=== PATIENT | male | born 1970 | race Caucasian/White ===

== ENCOUNTER → 2016-05-19 | Outpatient (CLI) | payer BC, OTHER ==
[~2016-05-19] MED LIST: MISCCAP80 PO
== END | disposition home or self-care (01) ==
LOC: C.LABPVFM 07:33
PROVIDERS: ATTEND Family Medicine
DX: R10.9 Unspecified abdominal pain (principal)

== ENCOUNTER 2016-12-13 19:41 | Emergency (ER) | payer BC, OTHER ==
[~2016-12-13] VITALS: Ht 181.6 cm; Wt 121.8 kg
[2016-12-13 19:44] VITALS: TEMP 36.9; Ht 181.6 cm; Wt 121.8 kg
--- NOTE | 2016-12-13 20:01 | EMERGENCY ROOM VISIT NOTE ---
ED Visit Note First contact with patient: 19:58 CHIEF COMPLAINT: Knee laceration HISTORY OF PRESENT ILLNESS: This 45-year-old male patient presents to the emergency department with his after cutting the anterior left knee with a end trimmer around 6:30 PM today. Patient states he took a shower to wash out the wound, it states the bleeding has not stopped, which is what has brought him in today. Denies weakness or numbness of the lower extremity. Patient denies foreign body sensation. The patient rates the pain as burning and throbbing and to/10. The patient denies any other injuries. The patient's Tetanus shot is not up to date. REVIEW OF SYSTEMS: A 6 system review of systems was completed with positives and pertinent negatives listed in the HPI. ALLERGIES: See chart MEDICATIONS: See chart PMH: See chart SOCIAL HISTORY: See chart PHYSICAL EXAM: Vital Signs: Reviewed Nurse's notes, vital signs stable. GENERAL : Pleasant and cooperative, in no acute distress, well-developed, well- nourished. SKIN: There is a 5 cm long laceration on the anterior aspect of the left knee. The edges gape apart with traction. There is no foreign material in the wound and it looks clean. There is minimal bleeding. No deep structures such as tendons, bones, or significant blood vessels are seen in the base of the wound. Normal strength and movement of the left knee. Capillary refill less than 2 seconds. Normal sensation to light and sharp touch. EMERGENCY DEPARTMENT COURSE: I examined the patient. Verbal consent was obtained to perform the procedure. Using sterile technique the wound was cleansed with Betadine. The area was sterilely draped. 4 ml of 1% buffered lidocaine with epinephrine was used to anesthetize the laceration on the left knee. Once the patient was anesthetized, the wound was copiously irrigated under pressure with sterile saline. The wound was explored and was as described above, specifically the wound does not extend into the knee joint. The laceration was repaired using one horizontal mattress suture with 3-0 nylon suture and 7 simple interrupted 4-0 nylon sutures with the wound edges being well approximated. The patient tolerated the procedure well. Hemostasis was achieved. The area was cleaned with sterile saline and dressed with bacitracin ointment and bandage. The patient was placed in a knee immobilizer to maintain suture integrity. The patient was given Td immunization. The patient was discharged home in good condition. Current/Historical Medications Scheduled Probiotic Product (Probiotic), 1 CAP PO DAILY Allergies Coded Allergies: No Known Allergies (Unverified , 12/13/16) Vital Signs Date Time Temp Pulse Resp B/P (MAP) Pulse Ox O2 Delivery O2 Flow Rate FiO2 12/13/16 22:50 68 16 124/70 98 12/13/16 21:40 72 16 127/85 97 Room Air 12/13/16 19:44 36.9 88 18 137/86 97 Room Air Medications Administered Medications (Trade) Dose Ordered Sig/Waqar Route Start Time Stop Time Status Last Admin Dose Admin Diphtheria/ Pertussis/Tetanus Vacc (Adacel Inj) 0.5 ml ONCE ONCE IM. 12/13/16 20:30 12/13/16 20:31 DC 12/13/16 20:30 0.5 ML Departure Information Impression Primary Impression: Laceration of left knee without complication Dispostion Home / Self-Care Condition GOOD Referrals No Doctor, Assigned (PCP) Patient Instructions ED Laceration Ext Sutr Stap Tape, [employer] Additional Instructions Follow-up with your PCP, in urgent care, or ER for suture removal in 10-12 days. Wear the knee immobilizer whenever your up and about to keep the knee from bending and popping up in your stitches. You may remove for sleep and showers. Keep wound clean and dry. Do not allow any crusting or dried blood to accumulate on sutures. If this occurs, use a 1:1 solution of hydrogen peroxide/ water on a Q-tip to clean the wound. Do not submerge the wound under water, no swimming until the sutures are removed. Use an antibiotic ointment for 3-4 days, then let wound dry. Ice and elevate for swelling and pain. Ibuprofen 600 mg and Tylenol 1000 mg every 6-8 hrs as needed for pain. Keep covered when in sun until sutures removed then SPF 50 or higher for one year. Vitamin E oil if desired two weeks after suture removal for reduction of scar. Please seek immediate medical attention for any signs of infection (increasing redness, swelling, pus drainage, streaking up the leg, fever/chills). Problem Qualifiers Primary Impression: Laceration of left knee without complication Encounter type: initial encounter Qualified Codes: S81.012A - Laceration without foreign body, left knee, initial encounter
[2016-12-13] MEDS ORDERED: DIPHTHERIA/TETANUS/PERTUSSIS 0.5 ML SYR/VIAL IM. ONE (20:30)
[2016-12-13] MEDS ORDERED: LIDOCAINE/EPINEPHRINE 1% 20 ML VIAL INFIL ONE (20:30)
[2016-12-13] MEDS ORDERED: MISCCAP80 PO (20:36)
[2016-12-13 22:50] VITALS: BP 124/70; PULSE 68; O2SAT 98
== END 2016-12-13 22:51 | disposition home or self-care (01) ==
LOC: C.EDB 19:43 → C.EDD 22:51
DX: S81.012A Laceration without foreign body, left knee, initial encounter (principal); W29.3XXA Contact with powered garden and outdoor hand tools and machinery, initial encounter; Z23 Encounter for immunization

== ENCOUNTER 2018-09-28 17:02 | Observation (INO) ==
[2018-09-28] MEDS ORDERED: ONDANSETRON INJ 2 MG/ML 2 ML VIAL IV PRN (18:30)
[2018-09-28] MEDS ORDERED: ACETAMINOPHEN 325 MG TAB PO PRN (18:30)
--- NOTE | 2018-09-28 19:12 | History & Physical Report ---
Date of Service September 28, 2018 Assessment & Plan (1) Diverticulitis: Luis Tellez is a 47-year-old male with past medical history of recurrent diverticulitis who presents with a acute episode of CT confirmed diverticulitis. He is known to [facility] surgical group, given a presentation that was unusual for him and his CT findings he was referred as a direct admit from outpatient care. Acute recurrent diverticulitis Ciprofloxacin 400 mg twice daily IV, metronidazole 500 mg every 8 hours IV No signs of sepsis at this time, afebrile, vital signs normal on admission Consulted general surgery given he is known to Dr. Gallo and have discussed surgical intervention in the past if he has recurrent or unusual episodes N.p.o. pending further evaluation No other chronic medical problems DVT prophylaxis: Low risk, SCDs, ambulate as tolerated ad yony. FEN/GI: LR 125 cc/h while n.p.o. CODE STATUS: Full code Disposition: Ongoing based on clinical response antibiotics and surgery evaluation. History of Present Illness Chief Complaint: LLQ Pain Primary Care Provider: Reinaldo Ramos MD Luis is a 47-year-old male with a past medical history of recurrent diverticulitis who presented to outpatient family medicine with left lower quadrant pain. He typically gets diverticulitis twice a year about May and November, for many years. He has had multiple treatments with antibiotics with good resolution and has been evaluated by Dr. Macdonald daily but was thought to not be a good surgical candidate in the past as his symptoms were generally mild and resolved with medical treatment. It was recommended that he get a colonoscopy, but he has not been able to schedule this yet. His last episode was this past winter. Mr. Tellez developed left lower quadrant pain early this morning with one episode of chills. He did not have fevers or [place]. His appetite has been okay, no episodes of vomiting. He was nauseous this morning, his nausea has improved. His bowel movements have been normal without any diarrhea, constipation, or blood. He has not noted any other symptoms. He had a repeat CT abdomen due to his history which showed acute sigmoid and to a lesser extent descending colonic diverticulitis, moderate pericolonic infiltrative change primarily of the sigmoid, and noevidence of abscess. Given his deviation from his normal baseline, his CT findings, and his discomfort he was referred as a direct admission to the hospital with consult for Dr. Gallo who has seen him in the past and is familiar with his case. He has no history of other past medical problems. He takes a probiotic at home. Otherwise no other home medications. No history of drug allergies. No history of food allergies. No history of seasonal allergies. No past surgical history. Social No tobacco use in over 18 years. Alcohol: Minimal, social no use in several months Recreational drug: None Lives at home with his Allergies Allergy/AdvReac Type Severity Reaction Status Date / Time No Known Allergies Allergy Unverified 12/13/16 20:36 Home Medications Home Medications Medication Instructions Recorded Confirmed Type PROBIOTIC PRODUCT (PROBIOTIC) 1 cap PO DAILY #0 12/13/16 History Metamucil 09/28/18 History Past Med/Surg History Social History Preferred Language: Mozambican Communication Ability: Effective Beliefs That Will Affect Care: None Current Living Situation: Spouse Other Information That Helps Us Care for You: No Feels Safe at Home: Yes Safety Concerns: Feels Safe At This Time Smoking Status: Former smoker Tobacco Type: cigarettes Do You Dip or Chew Tobacco: No Second Hand Exposure: No Hx Alcohol Use: Yes Alcohol type: beer Hx Substance Use: No Review of Systems Review of Systems: Constitutional: Denies fever, chills, malaise, weight change Eyes: Denies double vision, vision change. 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 ENT: Denies ear pain, sore throat, sinus pain Cardiovascular: Denies Chest pain, chest pressure, palpitations, extremity swelling Respiratory: Denies shortness of breath, cough, sputum production, difficulty breathing Gastrointestinal: Endorses LLQ abdominal pain, nausea. Denies vomiting, constipation, diarrhea Genitourinary: Denies pain with urination, urinary urgency, urinary frequency Musculoskeletal: Denies weakness, muscle aches/pain, joint aches/pain Integumentary:Denies rash, lesions, bruising Neurological: Denies headache, numbness, tingling, focal weakness Physical Exam Physical Exam: General: A&Ox3. NAD. Cooperative. HEENT: Normocephalic. Slight well healing bruise to the lateral R face, nontender. No pain on eye movements. No decreased visual acuity. No diplopia. No scleral icterus. Mucous membranes moist. No abnormal external ear/nose anatomy. Pulm: CTAB A&P. -wheezes, -rales, -rhonchi. Symmetrical chest rise. No increase work of breathing. No respiratory distress. Cardiac: RRR, -mrg. Radial pulses intact and symmetrical. Abdominal: LLQ tenderness with rebound or peritoneal signs. Softly distended. BS present. Neuro: Sensation intact in all extremities, moves all extremities equally Lymphatic: No anterior/posterior cervical or clavicular adenopathy. Results & Data Vital Signs (Past 12 Hours) Vital Signs Temp Pulse Resp BP Pulse Ox 09/28/18 17:33 37.1 C 95 H 20 139/80 97 Code Status & VTE Plan Code Status Full Code Supervising Physician Co-Signing Physician Notes Patient seen and examined independently of Dr. Ramos. Agree with history, exam findings, assessment and plan of care as outlined with the following updates: In brief, Mr. Tellez is a 47 year old male with hx of recurrent LLQ diverticulitis who presents as a direct admit for the family medicine office for diverticulitis. He typically has flares twice per year and has never been admitt ed to the hospital in the past for diverticulitis. Has previous been seen by gen surg to discuss partial colectomy due to this recurrent diverticulitis. He has been increasing fiber and has made significant changes in his diet in an effort to prevent diverticulitis episodes. No fevers. He did tolerate lunch earlier in the day. No vomiting, diarrhea, or blood in stool. On recent labs, no leukocytos is. CT with mild to moderate diveritculitis. No perf or microperf. No abscess. Exam with guarding in the left lower quadrant and tenderness to palpation but no periteoneal signs. Plan to switch from cipro to bactrim (patient concerned about tendon rupture or weakening with cipro) and flagyl. Advance diet in the morning if no overnight events. Dispo: if no overnight events, dc home tomorrow on bactrim and flagyl for 10 days. Resident Activity Tracking Resident Involvement: Resident Care Provided Care Provided: [facility]
[2018-09-28] MEDS: LACTATED RINGER'S 1,000 ML IV SCH (19:43)
--- NOTE | 2018-09-28 19:50 | Surgery Consultation ---
Date of Consultation September 28, 2018 Assessment & Plan (1) Diverticulitis: At this time since he is admitted I would recommend that we M IV Cipro and Flagyl I would expect by tomorrow he probably can be converted over to p.o. for proxy's 10-day course this is what his usual timeframe to resolve his symptoms have been with the last few attacks He should then proceed as planned for colonoscopy prior to considering possible sigmoid resection we will follow along with you Regarding the diet he certainly can have a low fiber diet at this time Present on Admission?: Yes History of Present Illness Reason for Consultation: Recurrent diverticulitis This 47-year-old gentleman last evening developed some left lower quadrant pain that he is quite familiar with since the last 2 years he has had repeated bouts in the same area usually in May and November diagnosed with diverticulitis usually treated with outpatient Cipro Flagyl and it resolves in approximately 4 to 5 days He had colonoscopy in the past and is scheduled for repeat colonoscopy this year I saw the patient in May of this year for right recommendation regarding his diverticular problem at that time I recommended that he proceed with colonoscopy prior to considering surgery also noted the patient never had any obstructive symptoms with the diverticular attacks and is never really been admitted treated as an outpatient At my visit with him in May of this year he also had bilateral inguinal hernia the right more symptomatic than the left Attending Physician: Cici Lacy DO Allergies Allergy/AdvReac Type Severity Reaction Status Date / Time No Known Allergies Allergy Unverified 12/13/16 20:36 Home Medications Home Medications Medication Instructions Recorded Confirmed Type PROBIOTIC PRODUCT (PROBIOTIC) 1 cap PO DAILY #0 12/13/16 History Metamucil 09/28/18 History Patient History Social History Preferred Language: Pakistani Communication Ability: Effective Beliefs That Will Affect Care: None Current Living Situation: Spouse Other Information That Helps Us Care for You: No Feels Safe at Home: Yes Safety Concerns: Feels Safe At This Time Smoking Status: Former smoker Tobacco Type: cigarettes Do You Dip or Chew Tobacco: No Second Hand Exposure: No Hx Alcohol Use: Yes Alcohol type: beer Hx Substance Use: No Review of Systems Review of Systems: He general health is been good 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 Physical Exam Physical Exam: Luis is resting comfortably in no distress significant other at bedside States she had a regular diet prior to coming into the hospital at this time is not hungry denies any nausea and he had merely irregular bowel movement prior to coming into the hospital The sclerae nonicteric Respiratory no overt respiratory problems Abdomen benign except some guarding in the left lower quadrant going to the back no true tenderness appreciated Results & Data Vital Signs (Past 12 Hours) Vital Signs Temp Pulse Resp BP Pulse Ox 09/28/18 17:33 37.1 C 95 H 20 139/[address] scan findings was reviewed as was the laboratory which showed no white count but did have a left shift
[2018-09-28] MEDS ORDERED: CIPROFLOXACIN 400 MG/200 ML BAG IV SCH (20:00)
[2018-09-28] MEDS: metroNIDAZOLE 500 MG/100 ML BAG IV SCH (20:31)
[2018-09-28] MEDS: SULFAMETHOXAZOLE/TRIMETHOPRIM DS 800/160MG TAB PO SCH (21:17)
[2018-09-29] MEDS: metroNIDAZOLE 500 MG/100 ML BAG IV SCH (04:10)
[2018-09-29] MEDS: LACTATED RINGER'S 1,000 ML IV SCH (05:14)
[2018-09-29 06:32] LABS: Basophils # (auto) 0.01 K/uL (0-0.2); Basophils % (auto) 0.1 %; Eosinophils # (auto) 0.02 K/uL (0-0.5); Eosinophils % (auto) 0.2 %; Hematocrit (blood only) 41.1 % (42-52); Hemoglobin 14.6 g/dL (14.0-18.0); Immature Granulocytes # (auto) 0.02 K/uL (0.00-0.02); Immature Granulocytes % (auto) 0.2 %; Lymphocytes # (auto) 0.78 K/uL (1.2-3.4); Lymphocytes % (auto) 9.7 %; Mean Corpuscular Hgb Conc 35.5 g/dL (32-36); Mean Corpuscular Volume 83.5 fL (80-100); Mean Platelet Volume 9.5 fL (7.4-10.4); Monocytes # (auto) 0.79 K/uL (0.11-0.59); Monocytes % (auto) 9.8 %; Neutrophils # (auto) 6.42 K/uL (1.4-6.5); Platelet Count 171 K/uL (130-400); Red Blood Count 4.92 M/uL (4.7-6.1); White Blood Count 8.04 K/uL (4.8-10.8)
[2018-09-29 07:02] LABS: BUN Creatinine Ratio 12.4 (10-20); Creatinine Clr Calc Pharmacy 143.7 ml/min; Est GFR (African American) 121.4; Est GFR (Non-African American) 104.7; Potassium 3.9 mmol/L (3.5-5.1)
--- NOTE | 2018-09-29 08:34 | Family Medicine Progress Note ---
Date of Service September 29, 2018 Assessment & Plan (1) Diverticulitis: Luis Tellez is a 47-year-old male with past medical history of recurrent diverticulitis who presents with a acute episode of CT confirmed diverticulitis. He is known to [facility] surgical group, given a presentation that was unusual for him and his CT findings he was referred as a direct admit from outpatient care. Acute recurrent diverticulitis Bactrim 800 160 every 12 p.o., metronidazole 500 mg every 8 hours PO No signs of sepsis at this time, afebrile, vital signs normal on admission Consulted general surgery given he is known to Dr. Gallo and have discussed surgical intervention in the past if he has recurrent or unusual episodes -Completed 10-day course of p.o. antibiotics as described above -Proceed with planned colonoscopy prior to considering possible sigmoid resection -We will continue to follow Clears this morning advance as tolerated No other chronic medical problems DVT prophylaxis: Low risk, SCDs, ambulate as tolerated ad yony. FEN/GI: LR 125 cc/h while n.p.o. CODE STATUS: Full code Disposition: Ongoing based on clinical response antibiotics and surgery evaluation. Results & Data Vital Signs (Past 12 Hours) Vital Signs Temp Pulse Resp BP Pulse Ox 09/29/18 08:21 37.3 C 64 18 125/74 92 09/28/18 23:02 37.4 C 73 16 114/57 L 95
--- NOTE | 2018-09-29 09:06 | Surgery Progress Note ---
Date of Service September 29, 2018 Assessment & Plan (1) Diverticulitis: 09/29/2018 Patient seen and examined with Dr. Gallo. +BM this AM. Patient greatly improved from yesterday. Keny full liquid diet. Will advance to low fiber diet. Ok to discharge from surgical standpoint. Patient to be discharged on 10days of Cipro and Flagyl. Patient has planned outpatient colonoscopy this Fall, but plans to have colonoscopy done sooner. Discussed surgical intervention- patient also has bilateral inguinal hernias. He would prefer to wait until [place] for surgery because he will have more time off to recover. All questions answered. Return precautions reviewed. Discharge per primary service. 09/28/2018 At this time since he is admitted I would recommend that we M IV Cipro and Flagyl I would expect by tomorrow he probably can be converted over to p.o. for proxy's 10-day course this is what his usual timeframe to resolve his symptoms have been with the last few attacks He should then proceed as planned for colonoscopy prior to considering possible sigmoid resection we will follow along with you Regarding the diet he certainly can have a low fiber diet at this time Subjective Patient resting comfortably in room. Abdominal pain improved this AM. Denies nausea or vomiting. Physical Exam Gastrointestinal (Abdomen): Percussion/Palpation: + abdomen tender (mild tenderness lower quadrants. ) and + hernia (known +bilateral inguinal hernias. ) Results & Data Vital Signs (Past 12 Hours) Vital Signs Temp Pulse Resp BP Pulse Ox 09/29/18 08:21 37.3 C 64 18 125/74 92 09/28/18 23:02 37.4 C 73 16 114/57 L 95
[2018-09-29] MEDS: SULFAMETHOXAZOLE/TRIMETHOPRIM DS 800/160MG TAB PO SCH (09:12)
--- NOTE | 2018-09-29 11:25 | Discharge Summary ---
Date of Service September 29, 2018 Admission HPI Per Admitting Provider Luis is a 47-year-old male with a past medical history of recurrent diverticulitis who presented to outpatient family medicine with left lower quadrant pain. He typically gets diverticulitis twice a year about May and November, for many years. He has had multiple treatments with antibiotics with good resolution and has been evaluated by Dr. Macdonald daily but was thought to not be a good surgical candidate in the past as his symptoms were generally mild and resolved with medical treatment. It was recommended that he get a colonoscopy, but he has not been able to schedule this yet. His last episode was this past winter. Mr. Tellez developed left lower quadrant pain early this morning with one episode of chills. He did not have fevers or rigors. His appetite has been okay, no episodes of vomiting. He was nauseous this morning, his nausea has improved. His bowel movements have been normal without any diarrhea, constipation, or blood. He has not noted any other symptoms. He had a repeat CT abdomen due to his history which showed acute sigmoid and to a lesser extent descending colonic diverticulitis, moderate pericolonic infiltrative change primarily of the sigmoid, and no evidence of abscess. Given his deviation from his normal baseline, his CT findings, and his discomfort he was referred as a direct admission to the hospital with consult for Dr. Gallo who has seen him in the past and is familiar with his case. He has no history of other past medical problems. He takes a probiotic at home. Otherwise no other home medications. No history of drug allergies. No history of food allergies. No history of seasonal allergies. No past surgical history. Social No tobacco use in over 18 years. Alcohol: Minimal, social no use in several months Recreational drug: None Lives at home with his Admission Exam Per Admitting Provider General: A&Ox3. NAD. Cooperative. HEENT: Normocephalic. Slight well healing bruise to the lateral R face, nontender. No pain on eye movements. No decreased visual acuity. No diplopia. No scleral icterus. Mucous membranes moist. No abnormal external ear/nose anatomy. Pulm: CTAB A&P. -wheezes, -rales, -rhonchi. Symmetrical chest rise. No increase work of breathing. No respiratory distress. Cardiac: RRR, -mrg. Radial pulses intact and symmetrical. Abdominal: LLQ tenderness with rebound or peritoneal signs. Softly distended. BS present. Neuro: Sensation intact in all extremities, moves all extremities equally Lymphatic: No anterior/posterior cervical or clavicular adenopathy. Principal Diagnosis Diverticulitis Discharge Exam General: A&Ox3. NAD. Cooperative. HEENT: Normocephalic. Slight well healing bruise to the lateral R face, nontender. No pain on eye movements. No decreased visual acuity. No diplopia. No scleral icterus. Mucous membranes moist. No abnormal external ear/nose anatomy. Pulm: CTAB A&P. -wheezes, -rales, -rhonchi. Symmetrical chest rise. No increase work of breathing. No respiratory distress. Cardiac: RRR, -mrg. Radial pulses intact and symmetrical. Abdominal: Nondistended. + bowel sounds. LLQ tenderness without rebound or peritoneal signs. Neuro: Sensation intact in all extremities, moves all extremities equally Discharge Data Allergies Allergy/AdvReac Type Severity Reaction Status Date / Time No Known Allergies Allergy Unverified 12/13/16 20:36 Consultations 09/28/18 18:30 Consult General Surgery Routine 09/28/18 18:32 Consult Case Management - Discharge Planning Routine Hospital Course (1) Diverticulitis: Luis Tellez is a 47-year-old male with past medical history of recurrent diverticulitis was a direct admission from the family medicine office for acute, uncomplicated diverticulitis. Acute recurrent diverticulitis Patient presented outpatient office with signs and symptoms concerning for diverticulitis received an outpatient CT scan confirming the diagnosis, patient was admitted for observation and medical management. On admission no signs of sepsis, afebrile, vital signs normal. He remained afebrile with normal vital signs throughout his admission. This patient is known to general surgery and gen surg was consulted for recommendations. He will complete a 10-day course of p.o. antibiotics per primary team. Patient will schedule outpatient colonoscopy prior to considering possible sigmoid resection. Patient tolerated clears well and diet was advanced as tolerated. Patient will complete 10 days total of oral bactrim and flagyl. He received 1 day of IV antibiotic therapy while hospitalized will complete 9 remaining days as an outpatient consisting of Bactrim 800 mg every 12 hours p.o., metronidazole 500 mg every 8 hours p.o.. No other chronic medical problems DVT prophylaxis: Low risk, SCDs, ambulate as tolerated ad yony. CODE STATUS: Full code Disposition: Home Total Time Total Time Spent Total Time Spent (In Minutes): 25 Discharge Plan Discharge Items Patient Disposition: Home - Self-Care Reason For Visit: DIVERTICULITIS Discharge Diagnosis: Recurrent diverticulitis Discharge Goals: Improve disease control and Therapeutic intervention Activity: As commented below Activity Comment: Please refrain from contact sports, heavy lifting, or other activities in which you could injure your abdomen including bike riding and motorcycling. Non-emergency contact: Primary Care Provider Call non-emergency contact if: your pain is unusual for you, your pain is concerning for you and your temperature is above 101.5 Follow-up/Referrals: Reinaldo Ramos MD [Primary Care Provider] - Diet: Carb Consistent or DM2, Low Fiber and Low Fat Addtl Provider Instructions: Care instructions: You were admitted to [facility] for treatment of diverticulitis. A discharge summary will be sent to your primary care physician to ensure continuity of care.Please bring this discharge summary with you to your next office appointment so that your provider can review it at that time. From a medical standpoint you appear to be stable and improving. Given the possibility for perforation, it is very important that you monitor your signs and symptoms, should they get worse this would include nausea, vomiting, pain in the abdomen, fever, chills, or other signs or symptoms of infection, it is imperative that you contact your primary care provider or return to the hospital for further follow-up. Please take your medications as prescribed. Given that this is a holiday weekend it is strongly recommended that you avoid alcohol intake, and also try to avoid constipating or heavy foods, this includes most barbecue food and lots of bread. Should any concerning signs or symptoms develop please return for further follow-up Follow-up appointments: - Keep all your follow-up appointments as already scheduled. If you cannot make an appointment, notify your provider. - Please call to request a follow-up appointment with your primary care physician within one week of discharge. Please let us know if you are unable to obtain an appointment Medications: - Your medication list has been reviewed and reconciled upon discharge to ensure accuracy and continuity of care. - You are provided with a list of all your current medications at this time. Please review this list closely and make note of any changes. - Please take all of your medications exactly as prescribed. - Tell your primary care provider if you cannot afford your medications. - Call your primary care provider if you are having any side effects or any other problems. - Call your primary care provider before taking any over the counter medications or supplements, including herbals and vitamins, because some of these may interact with your current medications and/or make your symptoms worse. Symptoms: Please call your primary care provider for symptoms including, but not limited to: fevers (temperatures greater than 100.4), chills, intractable nausea or vomiting, diarrhea, rash, shortness of breath, bleeding, pain, or if you experience any worsening of the symptoms that brought you to the hospital. For EMERGENCY and VERY SERIOUS health-related issues, such as chest pain, shortness of breath, or sudden onset of the symptoms that brought you to the hospital, you may need to call 911 or go directly to the Emergency Room It has been our privilege to take care of you during your hospital stay. And Above All Else Fell Better! Best Wishes, Quinton Gregorio MD PGY1 Resident, Family & Community Medicine [facility] at [facility] - [address], [address] MC: [place] [address] Prescriptions: New metronidazole 500 mg Tablet 500 mg PO Q8 10 Days Qty: 30 RF: 0 sulfamethoxazole-trimethoprim 800-160 mg Tablet 1 tab PO Q12 10 Days Qty: 20 RF: 0 Continued PROBIOTIC PRODUCT (PROBIOTIC) 1 CAP capsule 1 cap PO DAILY Qty: 0 RF: 0 Metamucil RF: 0 Stand-Alone Forms: My [facility] Discharge Orders: Discharge Order (Routine); Ordered 09/29/18 Ordered By: Quinton Gregorio Admission Data Admit Date/Time: 09/28/18 17:15 Attending Provider: Cici Lacy Admit Provider: Cici Lacy Primary Care Provider: Reinaldo Ramos Other Providers: Huy Gallo Service: Medical Other Interventions: Discharge Summary Assessment (RN) Last Done: 09/29/18 10:27 DC Date/Time DO NOT enter until pt leaves facility: 05/25/19 13:42 Supervising Physician Co-Signing Physician Notes Patient seen and examined with Dr. Gregorio. Agree with history, exam findings, assessment and plan of care as outlined with the following updates: In brief, Mr. Tellez is a 47 year old male with hx of recurrent LLQ diverticulitis who presents as a direct admit for the family medicine office for acute,uncomplicated diverticulitis. He typically has flares twice per year and has never been admitted to the hospital in the past for diverticulitis. Has previous been seen by gen surg to discuss partial colectomy due to this recurrent diverticulitis. He has been increasing fiber and has made significant changes in his diet in an effort to prevent diverticulitis episodes. No fevers. He did tolerate lunch earlier in the day. No vomiting, diarrhea, or blood in stool. On recent labs, no leukocytosis. CT with mild to moderate diveritculitis. No perf or microperf. No abscess. No overnight events. Tolerated clears for breakfast this morning without any worsening in his pain. Pain is improving and he has not required any pain medication. Exam with tenderness in the left lower quadrant no periteoneal signs. DC home today. Finish 10 days of PO bactrim and flagyl. He will call [facility] to have colonoscopy scheduled. Discussed case with general surgery this morning as well. I personally spent 25 minute discharge planning for this patient. Resident Activity Tracking Resident Involvement: Resident Care Provided Care Provided: Adult Hospital Medicine
[2018-09-29] MEDS ORDERED: metroNIDAZOLE 500 MG TAB PO SCH (14:00)
== END 2018-09-29 13:42 | disposition home or self-care (01) ==
LOC: INTOOBSV 17:15 → 3W 17:15